=== PATIENT | male | born 1940 | race Caucasian/White ===

== ENCOUNTER 2017-07-22 15:41 | Emergency (ER) | payer OTHER, MEDICARE ==
[~2017-07-22] VITALS: Ht 172.7 cm; Wt 90.7 kg
[2017-07-22 15:51] VITALS: BP_SYST 158
--- NOTE | 2017-07-22 16:00 | NUR ---
Pt to bed 2
--- NOTE | 2017-07-22 16:02 | NUR ---
Pt complains of left lower abdominal pain since this morning, 04/12. Per patient he had this feeling yesterday but went away. Patient reports he had vomited earlier this morning. Pt is AAO x 4 and ambulatory. Pt denies fever, constipation or diarrhea. No other injuries/complaints per patient or noted. at bedside.
--- NOTE | 2017-07-22 16:05 | NUR ---
ER Dr. Chung at bedside examining patient.
[2017-07-22 16:28] LABS: BILIRUBIN,URINE NEGATIVE (NEGATIVE); BLOOD, URINE 2+ (NEGATIVE); COLOR,URINE YELLOW (YELLOW); GLUCOSE,URINE NEGATIVE (NEGATIVE); KETONES,URINE NEGATIVE (NEGATIVE); LEUKOCYTE ESTERASE ,URINE 2+ (NEGATIVE); NITRITE, URINE NEGATIVE (NEGATIVE); PROTEIN URINE TRACE (NEGATIVE); UROBILINOGEN,URINE 0.2 (0.2-1.0)
[2017-07-22 16:28] LABS: BASOPHILS # (AUTO) 0.1 K/uL (0.0-0.2); BASOPHILS % (AUTO) 0.6 % (0.0-2.0); EOSINOPHILS # (AUTO) 0.1 K/uL (0.0-0.4); EOSINOPHILS % (AUTO) 0.4 % (0.0-4.0); HEMOGLOBIN 14.6 g/dL (14.0-18.0); LYMPHOCYTES # (AUTO) 1.8 K/uL (1.0-5.5); LYMPHOCYTES % (AUTO) 13.1 % (20.5-51.5); MEAN CORPUSCULAR HEMOGLOBIN 30 pg (27-31); MEAN CORPUSCULAR HGB CONC 33 % (32-36); MEAN CORPUSCULAR VOLUME 92 fL (79.0-98.0); MONOCYTES # (AUTO) 0.7 K/uL (0.0-1.0); MONOCYTES % (AUTO) 5.2 % (1.7-9.3); NEUTROPHILS # (AUTO) 10.9 K/uL (1.8-7.7); NEUTROPHILS % (AUTO) 80.7 % (40.0-70.0); PLATELET COUNT (AUTO) 334 K/uL (130-430); RED BLOOD CELL COUNT(AUTO) 4.87 MIL/uL (4.2-6.2); RED CELL DISTRIBUTION WIDTH 11.7 % (9.0-15.0); WHITE BLOOD COUNT (AUTO) 13.6 K/uL (4.8-10.8)
[2017-07-22] MEDS ORDERED: KETOROLAC TROMETHAMINE 30 MG VIAL ONE (16:37)
[2017-07-22 16:39] LABS: CLARITY/URINE HAZY (CLEAR)
[2017-07-22] MEDS: KETOROLAC TROMETHAMINE 30 MG VIAL IVP ONE (16:39)
[2017-07-22 16:41] LABS: BACTERIA,URINE FEW /HPF (None Seen); MUCUS,URINE None Seen /LPF (None Seen); WBC,URINE 50-80 /HPF (0-3)
[2017-07-22 16:46] LABS: INR 1.1 (0.80-1.20); PROTHROMBIN TIME 10.7 SECS (9.5-12.5)
--- NOTE | 2017-07-22 16:49 | NUR ---
Pt went to radiology in stable condition.
--- NOTE | 2017-07-22 17:02 | NUR ---
Pt returned from radiology in stable condition.
[2017-07-22 17:29] LABS: ANION GAP 10 (5-15); CHLORIDE 101 mmol/L (98-107); CREATININE 1.37 mg/dL (0.55-1.30); GLUCOSE 159 mg/dL (70-99); POTASSIUM 4.4 mmol/L (3.5-5.1); SODIUM SERUM 135 mmol/L (136-145); UREA NITROGEN, BLOOD 29 mg/dL (8-21)
[2017-07-22 17:34] LABS: ALANINE AMINOTRANSFERASE 32 U/L (12-78); ALBUMIN 3.9 g/dL (3.4-4.8); ASPARTATE AMINOTRANSFERASE 23 U/L (10-37); LIPASE 198 U/L (73-393); TOTAL BILIRUBIN 0.3 mg/dL (0.0-1.0)
--- NOTE | 2017-07-22 18:16 | NUR ---
Pt resting comfortably in hospital bed. No acute distress, will continue to monitor.
[2017-07-22] MEDS: NS 500 ML IV ONE (18:33)
[2017-07-22 19:05] VITALS: BP_SYST 130
--- NOTE | 2017-07-22 19:05 | NUR ---
Patient given written and verbal discharge instructions and verbalizes understanding. ER MD discussed with patient the results and treatment provided. Patient in stable condition. ID arm band removed. IV catheter removed intact and dressing applied, no active bleeding. Rx of tylenol and cipro given. Patient educated on pain management and to follow up with PMD. Pain Scale 5. Medication was given here and prescription was given for home. Opportunity for questions provided and answered.
[2017-07-22] MEDS: ACETAMINOPHEN 325 MG TABLET PO ONE (19:06)
== END 2017-07-22 19:05 | disposition home or self-care (01) ==
LOC: SED 15:41
DX: N20.0 Calculus of kidney (principal); N39.0 Urinary tract infection, site not specified
CPT/HCPCS: 36415; 74176; 80053; 81000; 83605; 83690; 85025; 85610; 85730; 87040; 87086; 87186; 96361; 96365; 96375; 99285; J1885; J1956; J7040